=== PATIENT | male | born 2000 | race Caucasian/White ===

== ENCOUNTER 2018-09-05 22:13 | Emergency (ER) | payer BC ==
[~2018-09-05] VITALS: Ht 182.9 cm; Wt 81.2 kg
[~2018-09-05 22:13] MED LIST: FLOMAX0.4 M1 PO; LORTAB 10-325 M1 TAB PO; NORCO1 TA1 PO; PHENERGAN25 MG RE; TORADOL PO; ZOFRAN ODT4 MG PO
[2018-09-05] MEDS ORDERED: ULTRAM50 M1 PO (22:46)
[2018-09-05] MEDS ORDERED: AMOXICILLIN500 MG PO (22:46)
[2018-09-05 23:04] VITALS: BP 130/72
== END 2018-09-05 23:04 | disposition home or self-care (01) | DRG 159 ==
LOC: ED 22:13
DX: K04.7 Periapical abscess without sinus (principal); F17.200 Nicotine dependence, unspecified, uncomplicated

== ENCOUNTER 2020-09-15 20:57 | Emergency (ER) | payer SELFPAY ==
[~2020-09-15] VITALS: Ht 182.9 cm; Wt 81.0 kg
[~2020-09-15 20:57] MED LIST changes: +AMOXICILLIN500 MG PO; +ULTRAM50 M1 PO
[2020-09-15 21:18] VITALS: BP 125/82
[2020-09-15 21:36] LABS: URINE BILIRUBIN - DIPSTICK NEGATIVE (NEGATIVE); URINE BLOOD DIPSTICK LARGE (NEGATIVE); URINE COLOR YELLOW; URINE GLUCOSE - DIPSTICK NEGATIVE (NEGATIVE); URINE KETONE NEGATIVE (NEGATIVE); URINE LEUK ESTERASE TRACE (NEGATIVE); URINE NITRITE - DIPSTICK NEGATIVE (Negative); URINE PH 5.5 (4.5-8.0); URINE PROTEIN - DIPSTICK NEGATIVE (NEG-TRACE); URINE SPECIFIC GRAVITY 1.025; URINE UROBILINOGEN - DIPSTICK 0.2 E.U./dL (0.2)
[2020-09-15 21:57] LABS: URINE RBC 25-50 RBC/hpf (0-5); URINE SQUAMOUS EPITHELIAL CELL FEW EPI/hpf (0-FEW)
[2020-09-15] MEDS ORDERED: PYRIDIUM200 MG PO (22:03)
[2020-09-15] MEDS ORDERED: KEFLEX500 M1 PO (22:03)
== END 2020-09-15 22:15 | disposition home or self-care (01) | DRG 690 ==
LOC: ED 20:57
PROVIDERS: Emergency Medicine
DX: N39.0 Urinary tract infection, site not specified (principal); F17.210 Nicotine dependence, cigarettes, uncomplicated

== ENCOUNTER 2021-01-29 07:09 | Emergency (ER) | payer OTHER ==
[~2021-01-29 07:09] MED LIST changes: +KEFLEX500 M1 PO; +PYRIDIUM200 MG PO
[2021-01-29 07:51] LABS: URINE BILIRUBIN - DIPSTICK NEGATIVE (NEGATIVE); URINE BLOOD DIPSTICK NEGATIVE (NEGATIVE); URINE COLOR YELLOW; URINE GLUCOSE - DIPSTICK NEGATIVE (NEGATIVE); URINE KETONE NEGATIVE (NEGATIVE); URINE LEUK ESTERASE NEGATIVE (NEGATIVE); URINE PROTEIN - DIPSTICK TRACE mg/dL (NEG-TRACE); URINE SPECIFIC GRAVITY >=1.030
[2021-01-29 07:59] LABS: URINE NITRITE - DIPSTICK NEGATIVE (Negative)
[2021-01-29 10:10] VITALS: BP 131/85
[2021-01-29] MEDS ORDERED: IBUPROFEN600 MG PO (10:21)
== END 2021-01-29 10:21 | disposition home or self-care (01) | DRG 730 ==
LOC: ED 07:09
PROVIDERS: Family Medicine
DX: N43.3 Hydrocele, unspecified (principal); F17.200 Nicotine dependence, unspecified, uncomplicated

== ENCOUNTER 2023-10-01 14:14 | Emergency (ER) | payer SELFPAY ==
[~2023-10-01] VITALS: Ht 182.9 cm; Wt 79.0 kg
[~2023-10-01 14:14] MED LIST changes: +IBUPROFEN600 MG PO
[2023-10-01 14:15] VITALS: BP 128/93
[2023-10-01] MEDS ORDERED: ACYCLOVIR400 MG PO (14:35)
== END 2023-10-01 14:47 | disposition home or self-care (01) | DRG 728 ==
LOC: ED 14:14
DX: A60.02 Herpesviral infection of other male genital organs (principal); F17.200 Nicotine dependence, unspecified, uncomplicated